=== PATIENT | male | born 1985 | race Two or more races ===

== ENCOUNTER 2017-12-29 01:20 | Emergency (ER) | payer MEDICAID ==
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
[2017-12-29 01:59] LABS: % BASOPHILS 0.9 % (0.0-2.0); % EOSINOPHILS 1.8 % (0.0-5.0); % MONOCYTES 8.8 % (2.0-10.0); % NEUTROPHILS 50.5 % (40.0-80.0); BASOPHILE ABSOLUTE 0.1 Th/cumm (0-0.2); EOSINOPHILE ABSOLUTE 0.1 Th/cmm (0.1-0.4); HEMATOCRIT 46.1 % (41.0-60); HEMOGLOBIN 15.6 gm/dL (12-16); LYMPHOCYTE ABSOLUTE 2.2 Th/cmm (1.5-3.0); MEAN CELL VOLUME 86.4 fl (80-99); MEAN CORPUSCULAR HEMOGLOBIN 29.3 pg (26.0-30.0); MEAN CORPUSCULAR HGB CONC 33.9 pg (28.0-36.0); MEAN PLATELET VOLUME 8.1 fl; MONOCYTE ABSOLUTE 0.5 Th/cmm (0.3-1.0); NEUTROPHILE ABSOLUTE 2.9 Th/cmm (1.8-8.0); PLATELET COUNT 238 Th/cmm (150-400); RED BLOOD COUNT 5.33 Mil/cmm (4.30-5.70); RED CELL DISTRIBUTION WIDTH 12.2 % (11.5-20.0); WHITE BLOOD COUNT 5.8 Th/cmm (4.8-10.8)
[2017-12-29] MEDS ORDERED: Potassium Chloride Elixir 20 mEq /15 mL UDC PO ONE (02:38)
[2017-12-29] MEDS ORDERED: Potassium Chloride Elixir 20 mEq /15 mL UDC ONE (02:39)
[2017-12-29 03:02] LABS: POTASSIUM SERUM 3.2 mEq/L (3.5-5.1); SODIUM SERUM 137 mEq/L (136-145)
[2017-12-29 03:03] LABS: BUN - UREA NITROGEN 8 mg/dL (7-25); CALCIUM SERUM 9.3 mg/dL (8.6-10.3); CREATININE - SERUM 0.9 mg/dL (0.7-1.3); GFR AFRICAN-AMERICAN > 60.0 ml/min (>90); GFR NON AFRICAN-AMERICAN > 60.0 ml/min; GLUCOSE 187 mg/dL (70-105)
[2017-12-29 03:05] LABS: BILIRUBIN,TOTAL 0.8 mg/dL (0.3-1.0); SGOT 27 U/L (13-39)
[2017-12-29 03:06] LABS: ALKALINE PHOSPHATASE 66 U/L (34-104); INR 1.01 (0.5-1.4); PROTHROMBIN TIME (TEST) 10.5 SECONDS (9.5-11.5); SGPT/ALT 31 U/L (7-52); TOTAL PROTEIN,SERUM 7.2 gm/dL (6.0-8.3)
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
[2017-12-29 13:52] LABS: ANION GAP 15.6 (7.0-16.0); CARBON DIOXIDE 18.6 mEq/L (21.0-31.0); CHLORIDE 106 mEq/L (98-107)
[2017-12-29 13:53] LABS: ALB/GLOB RATIO 1.9 (1.0-1.8); ALBUMIN 4.7 gm/dL (4.2-5.5)
== END 2017-12-29 03:42 | disposition home or self-care (01) ==
LOC: ER 01:20
DX: S01.112A Laceration without foreign body of left eyelid and periocular area, initial encounter (principal); F10.129 Alcohol abuse with intoxication, unspecified; Y90.6 Blood alcohol level of 120-199 mg/100 ml; Y04.0XXA Assault by unarmed brawl or fight, initial encounter; Y93.89 Activity, other specified; Y92.009 Unspecified place in unspecified non-institutional (private) residence as the place of occurrence of the external cause; Y99.8 Other external cause status
CPT/HCPCS: 12011; 36415-UA; 70150-TC; 70160-TC; 70260-TC; 80053-TC; 80320-TC; 83036-90; 84484-TC; 85025-TC; 85610-TC; 85730-TC